=== PATIENT | female | born 1965 | race Two or more races ===

== ENCOUNTER 2017-06-13 12:01 | Emergency (ER) | payer SELFPAY ==
--- NOTE | 2017-06-13 12:23 | ER Document Report ---
ED Medical Screen (RME) - General Chief Complaint: Nausea Stated Complaint: BLOOD SUGAR ISSUES Time Seen by Provider: 06/13/17 12:12 Notes: 51-year-old female patient reports running out of metformin 3 months ago. She states her blood sugars are running high, as much as 263 fasting. For the past 2 weeks her head feels heavy, she feels nauseous, and is itching. I have greeted and performed a rapid initial assessment of this patient. A comprehensive ED assessment and evaluation of the patient, analysis of test results and completion of the medical decision making process will be conducted by additional ED providers. TRAVEL OUTSIDE OF THE [place] IN LAST 30 DAYS: No - Related Data Allergies/Adverse Reactions: No Known Allergies Allergy (Unverified 08/09/16 09:45) Past Medical History - Social History Chew tobacco use (# tins/day): No Frequency of alcohol use: None Drug Abuse: None Pulmonary Medical History: Reports: Hx Asthma, Hx Pneumonia Endocrine Medical History: Reports: Hx Diabetes Mellitus Type 2 - "DIET CONTROLLED" Renal/ Medical History: Denies: Hx Peritoneal Dialysis Past Surgical History: Reports: Hx Tubal Ligation Physical Exam - Vital signs Vitals: Temp Pulse Resp BP Pulse Ox 98.7 F 75 16 142/75 H 97 06/13/17 12:05 06/13/17 12:05 06/13/17 12:05 06/13/17 12:05 06/13/17 12:05 Course - Vital Signs Vital signs: Temp Pulse Resp BP Pulse Ox 98.7 F 75 16 142/75 H 97 06/13/17 12:05 06/13/17 12:05 06/13/17 12:05 06/13/17 12:05 06/13/17 12:05
[2017-06-13 12:43] LABS: ABSOLUTE EOSINOPHILS # (AUTO) 0.1 10^3/uL (0.0-0.6); ABSOLUTE LYMPHOCYTES (AUTO) 2.2 10^3/uL (0.5-4.7); ABSOLUTE MONOCYTES (AUTO) 0.4 10^3/uL (0.1-1.4); ABSOLUTE NEUT (AUTO) 2.9 10^3/uL (1.7-8.2); BASOPHILS % (AUTO) 0.6 % (0-2); EOSINOPHILS % (AUTO) 2.4 % (0-6); HEMATOCRIT 37.7 % (36.0-47.0); HEMOGLOBIN 12.6 g/dL (12.0-15.5); HGB HCT DIFFERENCE 0.1; LYMPHOCYTES % (AUTO) 38.8 % (13-45); MEAN CORPUSCULAR HEMOGLOBIN 28.3 pg (27.0-33.4); MEAN CORPUSCULAR HGB CONC 33.4 g/dL (32.0-36.0); MEAN CORPUSCULAR VOLUME 85 fl (80-97); MONOCYTES % (AUTO) 7.5 % (3-13); RED BLOOD COUNT 4.45 10^6/uL (3.72-5.28); SEGMENTED NEUTROPHILS % (AUTO) 50.7 % (42-78); WHITE BLOOD COUNT 5.7 10^3/uL (4.0-10.5)
[2017-06-13 12:57] LABS: ALANINE AMINOTRANSFERASE 21 U/L (9-52); ALBUMIN 4.1 g/dL (3.5-5.0); ALKALINE PHOSPHATASE 97 U/L (38-126); ANION GAP 10 (5-19); ASPARTATE AMINO TRANSFERASE 15 U/L (14-36); BILIRUBIN,DIRECT 0.3 mg/dL (0.0-0.4); BILIRUBIN,TOTAL 0.4 mg/dL (0.2-1.3); BLOOD UREA NITROGEN 20 mg/dL (7-20); CALCIUM 9.6 mg/dL (8.4-10.2); CARBON DIOXIDE 28 mmol/L (22-30); CHLORIDE 105 mmol/L (98-107); GLUCOSE 186 mg/dL (75-110); POTASSIUM 4.1 mmol/L (3.6-5.0); SODIUM 142.5 mmol/L (137-145); TOTAL PROTEIN 7.6 g/dL (6.3-8.2)
[2017-06-13 13:14] LABS: APPEARANCE,URINE SLIGHTLY-CLOUDY; BILIRUBIN,URINE NEGATIVE (NEGATIVE); CALCIUM OXALATE CRYSTALS,URINE RARE /HPF; GLUCOSE, URINE NEGATIVE (NEGATIVE); KETONES,URINE NEGATIVE (NEGATIVE); LEUKOCYTE ESTERASE,URINE SMALL (NEGATIVE); NITRITE,URINE NEGATIVE (NEGATIVE); PROTEIN,URINE NEGATIVE (NEGATIVE); URINE SPECIFIC GRAVITY 1.024; UROBILINOGEN,URINE NEGATIVE mg/dL (<2.0)
--- NOTE | 2017-06-13 14:14 | ER Document Report ---
ED General - General Chief Complaint: Nausea Stated Complaint: BLOOD SUGAR ISSUES Time Seen by Provider: 06/13/17 12:12 TRAVEL OUTSIDE OF THE [place] IN LAST 30 DAYS: No - HPI Patient complains to provider of: Blood sugar issues chronic fatigue Notes: Patient coming in for blood sugar issues and chronic fatigue also states intermittent nausea states symptoms have been ongoing for approximately 1 year. Patient states she sees a [facility] clinic. Patient denies any recent travel antibiotics patient states that she was on metformin at one time however does not take any metformin approximately 3 years. Patient states never received formal diabetic teaching was recently diagnosed as being diabetic approximately 1 year ago. Denies any fevers chills nausea vomiting denies any dysuria denies any chest pain or abdominal pain. - Related Data Allergies/Adverse Reactions: No Known Allergies Allergy (Unverified 08/09/16 09:45) Past Medical History - Social History Smoking Status: Former Smoker Chew tobacco use (# tins/day): No Frequency of alcohol use: None Drug Abuse: None Family History: Reviewed & Not Pertinent Pulmonary Medical History: Reports: Hx Asthma, Hx Pneumonia Endocrine Medical History: Reports: Hx Diabetes Mellitus Type 2 - "DIET CONTROLLED" Renal/ Medical History: Denies: Hx Peritoneal Dialysis Past Surgical History: Reports: Hx Tubal Ligation Review of Systems - Review of Systems Constitutional: Other - Blood sugar issues fatigue EENT: No symptoms reported Cardiovascular: No symptoms reported Respiratory: No symptoms reported Gastrointestinal: No symptoms reported Genitourinary: No symptoms reported Female Genitourinary: No symptoms reported Musculoskeletal: No symptoms reported Skin: No symptoms reported Hematologic/Lymphatic: No symptoms reported Neurological/Psychological: No symptoms reported -: Yes All other systems reviewed and negative Physical Exam - Vital signs Vitals: Temp Pulse Resp BP Pulse Ox 98.7 F 75 16 142/75 H 97 06/13/17 12:05 06/13/17 12:05 06/13/17 12:05 06/13/17 12:05 06/13/17 12:05 Interpretation: Normal - General General appearance: Appears well, Alert - HEENT Head: Normocephalic, Atraumatic Eyes: Normal Pupils: PERRL - Respiratory Respiratory status: No respiratory distress Chest status: Nontender Breath sounds: Normal Chest palpation: Normal - Cardiovascular Rhythm: Regular Heart sounds: Normal auscultation Murmur: No - Abdominal Inspection: Normal Distension: No distension Bowel sounds: Normal Tenderness: Nontender Organomegaly: No organomegaly - Back Back: Normal, Nontender - Extremities General upper extremity: Normal inspection, Nontender, Normal color, Normal ROM , Normal temperature General lower extremity: Normal inspection, Nontender, Normal color, Normal ROM , Normal temperature, Normal weight bearing. No: Jovanny's sign - Neurological Neuro grossly intact: Yes Cognition: Normal Orientation: AAOx4 [place] Coma Scale Eye Opening: Spontaneous [place] Coma Scale Verbal: Oriented [place] Coma Scale Motor: Obeys Commands [place] Coma Scale Total: 15 Speech: Normal Motor strength normal: LUE, RUE, LLE, RLE Sensory: Normal - Psychological Associated symptoms: Normal affect, Normal mood - Skin Skin Temperature: Warm Skin Moisture: Dry Skin Color: Normal Course - Re-evaluation Re-evalutation: 06/13/17 15:09 Laboratory studies show that patient's A1c has decreased from 1 year ago. Patient does have elevated blood sugar however no other critical pathology seen on EKG or laboratory studies. Attempted to have the patient seen to go to medical clinic however they are currently booked up until June. This is found out with the assistance of her social insurance administrator. Otherwise no critical etiology patient was encouraged to follow-up with her doctor and only for another checkup also for formal diabetic teaching patient will be discharged home - Vital Signs Vital signs: Temp Pulse Resp BP Pulse Ox 98.6 F 65 16 122/74 96 06/13/17 14:30 06/13/17 14:30 06/13/17 14:30 06/13/17 14:30 06/13/17 14:30 - Laboratory Result Diagrams: 06/13/17 12:30 06/13/17 12:30 Laboratory results interpreted by me: 06/13/17 06/13/17 06/13/17 12:30 12:30 12:30 Glucose 186 H Hemoglobin A1c % 6.9 H Urine Blood MODERATE H Ur Leukocyte Esterase SMALL H Discharge - Discharge Clinical Impression: Hyperglycemia Fatigue Qualifiers: Fatigue type: unspecified Qualified Code(s): R53.83 - Other fatigue Condition: Good Disposition: HOME, SELF-CARE Instructions: Fatigue ([facility]), Hyperglycemia ([facility]) Additional Instructions: Your laboratory studies not show any signs of significant pathology for your symptoms today. I highly recommend following up with your primary care provider for further evaluation. Your hemoglobin A1c is 6.9 today which puts your blood sugars averaging between 150s-180. This looks to have improved since her last hemoglobin A1c here 1 year ago. Continue to control your diet recommend that she follow-up with your primary care physician asked for diabetic teaching. Return to ER symptoms worsen Forms: Return to Work
[2017-06-13 14:30] VITALS: BP 122/74
--- NOTE | 2017-06-13 19:36 | EKG REPORT ---
SEVERITY:- NORMAL ECG - SINUS RHYTHM : Confirmed by: Viktor Conklin MD 13-Jun-2017 19:35:30
== END 2017-06-13 16:50 | disposition home or self-care (01) ==
LOC: ER 12:01
DX: E11.65 Type 2 diabetes mellitus with hyperglycemia (principal); R53.83 Other fatigue; J45.909 Unspecified asthma, uncomplicated; Z87.891 Personal history of nicotine dependence
CPT/HCPCS: 36415; 80053; 81001; 83036; 85025; 93005; 93010; 99283

== ENCOUNTER → 2017-10-22 | Outpatient (CLI) | payer OTHER ==
[2017-10-22 10:25] LABS: ABSOLUTE EOSINOPHILS # (AUTO) 0.1 10^3/uL (0.0-0.6); ABSOLUTE LYMPHOCYTES (AUTO) 1.8 10^3/uL (0.5-4.7); ABSOLUTE MONOCYTES (AUTO) 0.3 10^3/uL (0.1-1.4); BASOPHILS % (AUTO) 0.5 % (0-2); EOSINOPHILS % (AUTO) 2.2 % (0-6); HEMATOCRIT 40.2 % (36.0-47.0); HEMOGLOBIN 13.4 g/dL (12.0-15.5); LYMPHOCYTES % (AUTO) 34.4 % (13-45); MEAN CORPUSCULAR HEMOGLOBIN 28.1 pg (27.0-33.4); MEAN CORPUSCULAR HGB CONC 33.4 g/dL (32.0-36.0); MEAN CORPUSCULAR VOLUME 84 fl (80-97); MONOCYTES % (AUTO) 5.7 % (3-13); PLATELET COUNT 225 10^3/uL (150-450); RED BLOOD COUNT 4.78 10^6/uL (3.72-5.28); RED CELL DISTRIBUTION WIDTH 13.4 % (11.5-14.0); SEGMENTED NEUTROPHILS % (AUTO) 57.2 % (42-78); TOTAL CELLS COUNTED % (AUTO) 100 %; WHITE BLOOD COUNT 5.3 10^3/uL (4.0-10.5)
[2017-10-22 10:41] LABS: ALANINE AMINOTRANSFERASE 28 U/L (9-52); ALBUMIN 4.2 g/dL (3.5-5.0); ALKALINE PHOSPHATASE 107 U/L (38-126); ANION GAP 6 (5-19); ASPARTATE AMINO TRANSFERASE 16 U/L (14-36); BILIRUBIN,DIRECT 0.2 mg/dL (0.0-0.4); BILIRUBIN,TOTAL 0.4 mg/dL (0.2-1.3); BLOOD UREA NITROGEN 19 mg/dL (7-20); CALCIUM 9.8 mg/dL (8.4-10.2); CARBON DIOXIDE 29 mmol/L (22-30); CHLORIDE 103 mmol/L (98-107); CHOLESTEROL 190.54 mg/dL (0-200); GLUCOSE 288 mg/dL (75-110); POTASSIUM 4.3 mmol/L (3.6-5.0); TOTAL PROTEIN 7.5 g/dL (6.3-8.2); TRIGLYCERIDES 112 mg/dL (<150)
[2017-10-22 10:52] LABS: DIRECT LDL 144 mg/dL (<100)
== END ==
LOC: CCC 09:00
DX: I10 Essential (primary) hypertension (principal); E11.8 Type 2 diabetes mellitus with unspecified complications
CPT/HCPCS: 36415; 80053; 80061; 83036; 84443; 85025

== ENCOUNTER 2017-12-11 14:28 | Emergency (ER) | payer SELFPAY ==
[2017-12-11 15:07] VITALS: BP 136/82
[2017-12-11] MEDS ORDERED: LIDOCAINE 2% VISCOUS SOLN 20 ML UDCUP PO ONE (15:10)
--- NOTE | 2017-12-11 15:13 | ER Document Report ---
HPI - HPI Pain Level: 4 Notes: Patient is a 52-year-old female with a history of type 2 diabetes as well as hypertension who presents to the ED complaining of dental pain to #2 intermittently over the last week. Patient states that she is scheduled for dental appointment on Friday. Patient has not noticed any obvious abscess or discharge. Patient still able to eat and drink, but does have decreased p.o. intake due to the discomfort with chewing. She denies any drug allergies or IV drug use. No other concerns or complaints at this time. Denies any headache, fever, head injury, neck pain, URI, sore throat, chest pain, palpitations, syncope, cough, shortness of breath, wheeze, dyspnea, abdominal pain, nausea/ vomiting/diarrhea, urinary retention, dysuria, hematuria, or rash. - ROS Systems Reviewed and Negative: Yes All other systems reviewed and negative - REPRODUCTIVE Reproductive: DENIES: : Past Medical History - Social History Smoking Status: Unknown if Ever Smoked Family History: Reviewed & Not Pertinent Pulmonary Medical History: Reports: Hx Asthma, Hx Pneumonia Endocrine Medical History: Reports: Hx Diabetes Mellitus Type 2 - "DIET CONTROLLED" Renal/ Medical History: Denies: Hx Peritoneal Dialysis Past Surgical History: Reports: Hx Tubal Ligation Vertical Provider Document - CONSTITUTIONAL Agree With Documented VS: Yes Notes: PHYSICAL EXAMINATION: GENERAL: Well-appearing, well-nourished and in no acute distress. HEAD: Atraumatic, normocephalic. EYES: Pupils equal round and reactive to light, extraocular movements intact, sclera anicteric, conjunctiva are normal. ENT: EAC clear b/l. TM's intact b/l without erythema, fluid, or perforation. Nares patent and without discharge. oropharynx clear without exudates. No tonsilar hypertrophy or erythema. Moist mucous membranes. No sinus tenderness. Uvula midline. No palatine shift. No tongue protrusion. No respiratory compromise. Mouth: Poor dentition. + mild decay and mild gingivitis. No obvious abscess or discharge noted. No facial swelling. + tenderness to tooth #2. NECK: Normal range of motion, supple without lymphadenopathy. No rigidity/ meningismus. LUNGS: Breath sounds clear to auscultation bilaterally and equal. No wheezes rales or rhonchi. HEART: Regular rate and rhythm without murmurs, rubs, gallops. NEUROLOGICAL: Cranial nerves grossly intact. Normal speech, normal gait. Normal sensory, motor exams PSYCH: Normal mood, normal affect. SKIN: Warm, Dry, normal turgor, no rashes or lesions noted. - INFECTION CONTROL TRAVEL OUTSIDE OF THE [place] IN LAST 30 DAYS: No Course - Re-evaluation Re-evalutation: 12/11/17 15:11 Patient is an afebrile, well-hydrated, 52-year-old female who presents to the ED with dental pain to #2 approximately, suspect nerve root etiology versus infection. Vitals are acceptable. PE is otherwise unremarkable. Patient was given viscous lidocaine as well as a prescription of penicillin. Low suspicion for any meningitis, sepsis, peritonsillar/pharyngeal abscess, respiratory compromise, Kai's, temporal arteritis, or other emergent systemic condition at this time. Patient is aware this condition can change from initial presentation and he needs to monitor symptoms closely. Conservative measures otherwise for symptoms. Keep appointment with dentist on Friday. Recheck with your PCM this week as well. Return to the ED with any worsening/concerning symptoms otherwise as reviewed in discharge. Patient is in agreement. - Vital Signs Vital signs: Temp Pulse Resp BP Pulse Ox 97.8 F 74 16 136/82 H 99 12/11/17 15:06 12/11/17 15:06 12/11/17 15:06 12/11/17 15:06 12/11/17 15:06 Discharge - Discharge Clinical Impression: Toothache Condition: Stable Disposition: HOME, SELF-CARE Instructions: Penicillin V K ([facility]), Toothache ([facility]) Additional Instructions: [place] and floss twice daily Maintain fluid intake Take antibiotics as directed Mouthwash, salt water gargles, peroxide rinse as needed Tylenol/ibuprofen as needed Recheck with PCM this week Keep appointment with dentist on Friday Return to the ED with any worsening symptoms and/or development of fever, headache, facial swelling, swelling of lips/tongue/throat, trouble swallowing, drooling, hoarseness, neck pain/stiffness, chest pain, palpitations, syncope, shortness of breath, trouble breathing, abdominal pain, n/v/d, numbness/tingling , or other worsening symptoms that are concerning to you. Prescriptions: Penicillin V Potassium [Penicillin Vk 250 mg Tablet] 500 mg PO BID #40 tablet Forms: Elevated Blood Pressure Referrals: [facility] [Provider Group] - 12/15/17
== END 2017-12-11 15:19 | disposition home or self-care (01) ==
LOC: ER 14:28
DX: K08.9 Disorder of teeth and supporting structures, unspecified (principal); E11.9 Type 2 diabetes mellitus without complications; I10 Essential (primary) hypertension; Z98.51 Tubal ligation status
CPT/HCPCS: 99282; J3490

== ENCOUNTER → 2018-01-28 | Outpatient (CLI) | payer OTHER ==
[2018-01-28 14:47] LABS: ANION GAP 13 (5-19); BLOOD UREA NITROGEN 14 mg/dL (7-20); CALCIUM 9.7 mg/dL (8.4-10.2); CARBON DIOXIDE 26 mmol/L (22-30); CHLORIDE 105 mmol/L (98-107); GLUCOSE 80 mg/dL (75-110); POTASSIUM 4.3 mmol/L (3.6-5.0); SODIUM 143.7 mmol/L (137-145)
== END ==
LOC: OD 12:54
DX: E11.8 Type 2 diabetes mellitus with unspecified complications (principal); I10 Essential (primary) hypertension
CPT/HCPCS: 36415; 80048; 83036

== ENCOUNTER → 2019-02-10 | Outpatient (CLI) | payer OTHER ==
[2019-02-10 09:35] LABS: ABSOLUTE EOSINOPHILS # (AUTO) 0.2 10^3/uL (0.0-0.6); ABSOLUTE LYMPHOCYTES (AUTO) 2.2 10^3/uL (0.5-4.7); ABSOLUTE MONOCYTES (AUTO) 0.3 10^3/uL (0.1-1.4); ABSOLUTE NEUT (AUTO) 2.4 10^3/uL (1.7-8.2); BASOPHILS % (AUTO) 0.8 % (0-2); EOSINOPHILS % (AUTO) 3.3 % (0-6); HEMATOCRIT 40.2 % (36.0-47.0); HEMOGLOBIN 13.3 g/dL (12.0-15.5); LYMPHOCYTES % (AUTO) 43.4 % (13-45); MEAN CORPUSCULAR HEMOGLOBIN 27.8 pg (27.0-33.4); MEAN CORPUSCULAR HGB CONC 33.1 g/dL (32.0-36.0); MEAN CORPUSCULAR VOLUME 84 fl (80-97); MONOCYTES % (AUTO) 6.4 % (3-13); PLATELET COUNT 235 10^3/uL (150-450); RED BLOOD COUNT 4.78 10^6/uL (3.72-5.28); RED CELL DISTRIBUTION WIDTH 14.6 % (11.5-14.0); SEGMENTED NEUTROPHILS % (AUTO) 46.1 % (42-78); TOTAL CELLS COUNTED % (AUTO) 100 %; WHITE BLOOD COUNT 5.1 10^3/uL (4.0-10.5)
[2019-02-10 10:05] LABS: ALANINE AMINOTRANSFERASE 15 U/L (9-52); ALBUMIN 4.1 g/dL (3.5-5.0); ALKALINE PHOSPHATASE 71 U/L (38-126); ANION GAP 10 (5-19); ASPARTATE AMINO TRANSFERASE 14 U/L (14-36); BILIRUBIN,DIRECT 0.2 mg/dL (0.0-0.4); BILIRUBIN,TOTAL 0.3 mg/dL (0.2-1.3); BLOOD UREA NITROGEN 21 mg/dL (7-20); CALCIUM 9.6 mg/dL (8.4-10.2); CARBON DIOXIDE 29 mmol/L (22-30); CHLORIDE 105 mmol/L (98-107); CHOLESTEROL 159.55 mg/dL (0-200); GLUCOSE 97 mg/dL (75-110); POTASSIUM 4.5 mmol/L (3.6-5.0); SODIUM 144.4 mmol/L (137-145); TOTAL PROTEIN 7.9 g/dL (6.3-8.2); TRIGLYCERIDES 59 mg/dL (<150)
[2019-02-10 10:17] LABS: DIRECT LDL 106 mg/dL (<100)
== END ==
LOC: CCC 08:42
DX: E11.8 Type 2 diabetes mellitus with unspecified complications (principal); I10 Essential (primary) hypertension
CPT/HCPCS: 36415; 80053; 80061; 84443; 85025

== ENCOUNTER → 2019-03-03 | Outpatient (CLI) | payer OTHER ==
[2019-03-03 12:15] LABS: CHOLESTEROL 178.44 mg/dL (0-200); TRIGLYCERIDES 51 mg/dL (<150)
[2019-03-03 12:26] LABS: DIRECT LDL 120 mg/dL (<100)
== END ==
LOC: CCC 11:01
DX: E78.5 Hyperlipidemia, unspecified (principal)
CPT/HCPCS: 36415; 80061

== ENCOUNTER → 2019-06-25 | Outpatient (CLI) | payer OTHER ==
[2019-06-25 10:07] LABS: CHOLESTEROL 108.36 mg/dL (0-200); TRIGLYCERIDES 46 mg/dL (<150)
[2019-06-25 10:19] LABS: DIRECT LDL 69 mg/dL (<100)
== END ==
LOC: CCC 08:30
DX: E11.8 Type 2 diabetes mellitus with unspecified complications (principal); I10 Essential (primary) hypertension; E78.5 Hyperlipidemia, unspecified
CPT/HCPCS: 36415; 80061

== ENCOUNTER 2020-08-27 20:50 | Emergency (ER) | payer SELFPAY ==
--- NOTE | 2020-08-27 21:39 | ER Document Report ---
ED Medical Screen (RME) - General Stated Complaint: CHEST PRESSURE EPIGASTRIC PAIN Time Seen by Provider: 08/27/20 21:27 Primary Care Provider: [facility] [Primary Care Provider] - Follow up as needed Mode of Arrival: Wheelchair Information source: Patient Notes: HPI; 54-year-old female past medical history significant for hypertension, diabetes, cholesterol was brought to the emergency room by ambulance after complaining of dizziness with chest pain that started earlier today. States she was given 3 nitro sprays in route by ambulance and is currently pain-free. States her dizziness resolved without intervention. She denies any nausea, vomiting, no diaphoresis. She had described the pain as sharp and midsternal. States right now she just feels some "heaviness" on her chest but states she would not "call it pain". PE: Alert and oriented x3. Lungs: Clear to auscultation without rales, rhonchi, wheezes. Heart: Regular rate rhythm without murmurs, rubs, gallops. I have greeted and performed a rapid initial assessment of this patient. A comprehensive ED assessment and evaluation of the patient, analysis of test results and completion of the medical decision making process will be conducted by additional ED providers. I have specifically instructed the patient or family members with the patient to immediately return to any nursing staff should anything change in the patient's condition or with their chief complaint. TRAVEL OUTSIDE OF THE [place] IN LAST 30 DAYS: No - Related Data Allergies/Adverse Reactions: No Known Allergies Allergy (Unverified 08/09/16 09:45) Past Medical History Pulmonary Medical History: Reports: Hx Asthma, Hx Pneumonia Endocrine Medical History: Reports: Hx Diabetes Mellitus Type 2 - "DIET CONTROLLED" Renal/ Medical History: Denies: Hx Peritoneal Dialysis Past Surgical History: Reports: Hx Tubal Ligation Physical Exam - Vital signs Vitals: Temp Pulse Resp BP Pulse Ox 98.5 F 84 16 122/69 97 08/27/20 20:57 08/27/20 20:57 08/27/20 20:57 08/27/20 20:57 08/27/20 20:57 Course - Vital Signs Vital signs: Temp Pulse Resp BP Pulse Ox 98.5 F 84 16 122/69 97 08/27/20 20:57 08/27/20 20:57 08/27/20 20:57 08/27/20 20:57 08/27/20 20:57 Doctor's Discharge - Discharge Referrals: [facility] [Primary Care Provider] - Follow up as needed
[2020-08-27 22:36] LABS: ABSOLUTE EOSINOPHILS # (AUTO) 0.1 10^3/uL (0.0-0.6); ABSOLUTE MONOCYTES (AUTO) 0.6 10^3/uL (0.1-1.4); TOTAL CELLS COUNTED % (AUTO) 100 %
--- NOTE | 2020-08-27 22:54 | RADIOLOGY REPORT (SQ) ---
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 Comparison: Chest radiograph performed 08/09/2016. Findings: The cardiomediastinal silhouette is normal in size. No pneumothorax is seen. No acute airspace opacities are seen. No discrete pleural effusion is apparent. Impression: No acute airspace opacities are seen.
[2020-08-27 22:57] LABS: ALBUMIN 4.2 g/dL (3.5-5.0); ALKALINE PHOSPHATASE 79 U/L (38-126); ANION GAP 6 (5-19); ASPARTATE AMINO TRANSFERASE 21 U/L (14-36); BILIRUBIN,TOTAL 0.3 mg/dL (0.2-1.3); BLOOD UREA NITROGEN 18 mg/dL (7-20); CARBON DIOXIDE 32 mmol/L (22-30); CHLORIDE 100 mmol/L (98-107); GLUCOSE 117 mg/dL (75-110); TOTAL PROTEIN 7.6 g/dL (6.3-8.2)
[2020-08-27 23:09] LABS: ABSOLUTE LYMPHOCYTES (AUTO) 2.9 10^3/uL (0.5-4.7); ABSOLUTE NEUT (AUTO) 4.7 10^3/uL (1.7-8.2); BASOPHILS % (AUTO) 0.6 % (0-2); EOSINOPHILS % (AUTO) 1.6 % (0-6); HEMATOCRIT 35.9 % (36.0-47.0); HEMOGLOBIN 12.1 g/dL (12.0-15.5); LYMPHOCYTES % (AUTO) 34.4 % (13-45); MEAN CORPUSCULAR HEMOGLOBIN 28.6 pg (27.0-33.4); MEAN CORPUSCULAR HGB CONC 33.8 g/dL (32.0-36.0); MEAN CORPUSCULAR VOLUME 85 fl (80-97); MONOCYTES % (AUTO) 7.5 % (3-13); PLATELET COUNT 250 10^3/uL (150-450); RED BLOOD COUNT 4.23 10^6/uL (3.72-5.28); RED CELL DISTRIBUTION WIDTH 14.2 % (11.5-14.0); SEGMENTED NEUTROPHILS % (AUTO) 55.9 % (42-78); WHITE BLOOD COUNT 8.4 10^3/uL (4.0-10.5)
[2020-08-28] MEDS ORDERED: POTASSIUM CHLORIDE 10 MEQ TABLET.ER PO ONE (00:15)
--- NOTE | 2020-08-28 00:21 | ER Document Report ---
ED General - General Chief Complaint: Chest Pain Stated Complaint: CHEST PRESSURE EPIGASTRIC PAIN Time Seen by Provider: 08/27/20 21:27 Primary Care Provider: [facility] [Primary Care Provider] - Follow up as needed Mode of Arrival: Wheelchair Notes: This 54-year-old woman presents to the emergency department with a complaint of chest pressure and epigastric pain and pressure with belching. Patient symptoms began around 2 AM in the afternoon and continued there was no vomiting and improvement 2 AM resolution without medical intervention. EMS was called to the home and the patient did receive aspirin 325mg sublingual nitroglycerin 0.4 mg sublingual x3 and patient was brought to the emergency department. The Covid screening was negative the patient. And in the emergency department she is alert and talkative and in no distress. Past medical history significant for h ypertension, diabetes mellitus, obesity, and elevated lipids. TRAVEL OUTSIDE OF THE [place] IN LAST 30 DAYS: No - Related Data Allergies/Adverse Reactions: No Known Allergies Allergy (Unverified 08/09/16 09:45) Past Medical History - General Information source: Patient - Social History Smoking Status: Former Smoker Chew tobacco use (# tins/day): No Frequency of alcohol use: None Drug Abuse: None Family History: Reviewed & Not Pertinent - Past Medical History Cardiac Medical History: Reports: Hx Hypercholesterolemia, Hx Hypertension Pulmonary Medical History: Reports: Hx Asthma, Hx Pneumonia Neurological Medical History: Reports: Hx Migraine Endocrine Medical History: Reports: Hx Diabetes Mellitus Type 2 - "DIET CONTROLLED" Renal/ Medical History: Denies: Hx Peritoneal Dialysis Past Surgical History: Reports: Hx Tubal Ligation Review of Systems - Review of Systems Notes: Constitutional: Negative for fever. HENT: Negative for sore throat. Eyes: Negative for visual changes. Cardiovascular: See HPI Respiratory: Negative for shortness of breath. Gastrointestinal: See HPI. Genitourinary: Negative for dysuria. Musculoskeletal: Negative for back pain. Skin: Negative for rash. Neurological: Negative for headaches, weakness or numbness. 10 point ROS negative except as marked above and in HPI. Physical Exam - Vital signs Vitals: Temp Pulse Resp BP Pulse Ox 98.5 F 84 16 122/69 97 08/27/20 20:57 08/27/20 20:57 08/27/20 20:57 08/27/20 20:57 08/27/20 20:57 - Notes Notes: PHYSICAL EXAMINATION: Physical Exam: General: Obese 54-year-old woman in no acute distress HEENT: Normocephalic atraumatic, pupils equal round react light accommodation, extraocular motions intact ear, oropharynx clear, airway patent Neck: supple, no adenopathy, no masses. Good range of motion, no JVD Lungs: Clear with good air movement bilaterally CVS: Regular rate and rhythm no murmur gallop or rub Abdomen: Soft, active, nontender, no masses, no hepatosplenomegaly Ext: No edema, clubbing or cyanosis. Neuro: Alert and responsive, moving all 4 extremities on command, cranial nerves intact, no focal findings Skin: Intact no open lesions, no rash Course - Vital Signs Vital signs: Temp Pulse Resp BP Pulse Ox 98.5 F 84 17 120/58 L 97 08/27/20 23:00 08/27/20 20:57 08/28/20 01:01 08/28/20 01:01 08/28/20 01:01 - Laboratory Result Diagrams: 08/27/20 22:25 08/27/20 22:25 Laboratory results interpreted by me: 08/27/20 08/27/20 22:25 22:25 Hct 35.9 L RDW 14.2 H Potassium 3.0 L* Carbon Dioxide 32 H Glucose 117 H 08/28/20 02:06 I have reviewed laboratory data and used this information for the treatment decisions regarding the patient. - Diagnostic Test Radiology reviewed: Image reviewed, Reports reviewed Radiology results interpreted by me: 08/28/20 01:56 No acute cardiopulmonary findings on chest x-ray. - EKG Interpretation by Ga Rate: Normal - EKG interpreted by Dr. Kan: Normal sinus rhythm, rate 73, WI interval 156 ms QT interval 396 ms, normal axis, no acute ST or T wave abnormalities, no ischemic findings, compared to EKG dated 06/13/2017, no acute interval changes are noted. Interpretation normal EKG Discharge - Discharge Clinical Impression: Non-cardiac chest pain, Hypokalemia GERD (gastroesophageal reflux disease) Qualifiers: Esophagitis presence: without esophagitis Qualified Code(s): K21.9 - Gastro- esophageal reflux disease without esophagitis Condition: Fair Disposition: HOME, SELF-CARE Instructions: Hypokalemia ([facility]), Prilosec (Acid Pump Inhibitor) ([facility]), Reflux Disease (GERD) ([facility]) Additional Instructions: You were seen in the emergency department tonight with episodes of chest discomfort and belching with an evaluation which reveals noncardiac chest pain. Your potassium was found to be low and a prescription is written for potassium supplement. It is likely that your symptoms are related to your GI complaints and not your heart. Using an antacid would help to reduce a recurrence of the symptoms. Please follow-up with your primary care doctor. HOME CARE INSTRUCTIONS & INFORMATION: Thank you for choosing us for your medical needs. We hope you're satisfied with the care you received. After you leave, you must properly care for your problem and, at the same time, observe its progress. Any condition can change. Some illnesses can change rapidly over hours or days. If your condition worsens, return to the Emergency Department or see your physician promptly. ABOUT YOUR X-RAYS AND EKG'S: If you had an EKG or X-rays taken, they have been read by the Emergency Physician. The X-rays and EKG's will also be read by a Radiologist or Director Apparel within 24 hours. If discrepancies are noted, you will be notified by telephone. Please be certain the ED has a correct telephone number & address where you can be reached. Also, realize that some fractures or abnormalities do not show up on initial X-rays. If your symptoms continue, see your physician. ABOUT YOUR LABORATORY TEST: If you had laboratory tests, the results have been reviewed by the Emergency Physician. Some test results (for example cultures) may not be available for several days. You will be contacted if any test result shows you need additional treatment. Please be certain the ED has a correct telephone number and address where you can be reached. ABOUT YOUR MEDICATIONS: You will receive instructions on how to take your medicine on the prescription label you receive. Additional information may be provided by the Pharmacy. If you have questions afterwards, call the ED for clarification or further instructions. Some prescribed medications may cause drowsiness. Do not perform tasks such as driving a car or operating machinery without consulting your Pharmacist. If you feel you need a refill of pain medication, your condition will need re-evaluation. Please do not call for a refill of any medication. ABOUT YOUR SIGNATURE: Signature of this document acknowledges to followin. Understanding that you received emergency treatment and that you may be released before al medical problems are known or treated. Please be certain the ED has a correct phone number & address where you can be reached. 2. Acknowledgement that you will arrange for follow-up care as recommended. 3. Authorization for the Emergency Physician to provide information to your follow-up Physician in order to maximize your care. AT ANY TIME, IF YOUR SYMPTOMS CHANGE SIGNIFICANTLY OR WORSEN OR YOU DEVELOP NEW SYMPTOMS, RETURN TO THE EMERGENCY DEPARTMENT IMMEDIATELY FOR RE-EVALUATION. OUR GOAL IS TO PROVIDE EXCELLENT MEDICAL CARE! WE HOPE THAT WE HAVE MET YOUR EXPECTATIONS DURING YOUR EMERGENCY DEPARTMENT VISIT AND THAT YOU FEEL YOU HAVE RECEIVED EXCELLENT CARE! Prescriptions: Potassium Chloride 20 meq PO DAILY #10 [email or web address] Referrals: [facility] [Primary Care Provider] - Follow up as needed
[2020-08-28 02:13] VITALS: BP 120/71
--- NOTE | 2020-08-28 08:17 | EKG REPORT ---
SEVERITY:- NORMAL ECG - SINUS RHYTHM : Confirmed by: Gali Schmitt 28-Aug-2020 08:16:01
== END 2020-08-28 02:13 | disposition home or self-care (01) ==
LOC: ER 20:50
DX: K21.9 Gastro-esophageal reflux disease without esophagitis (principal); E87.6 Hypokalemia; R07.89 Other chest pain; R10.13 Epigastric pain; R14.2 Eructation; I10 Essential (primary) hypertension; E11.9 Type 2 diabetes mellitus without complications; J45.909 Unspecified asthma, uncomplicated; E66.9 Obesity, unspecified; Z87.891 Personal history of nicotine dependence
CPT/HCPCS: 36415; 71045; 80053; 83735; 83880; 84484; 85025; 93005; 93010; 99285

== ENCOUNTER → 2020-09-09 | Outpatient (CLI) | payer OTHER ==
[2020-09-09 12:46] LABS: ANION GAP 6 (5-19); BLOOD UREA NITROGEN 18 mg/dL (7-20); CALCIUM 9.1 mg/dL (8.4-10.2); CARBON DIOXIDE 31 mmol/L (22-30); CHLORIDE 105 mmol/L (98-107); CHOLESTEROL 109.89 mg/dL (0-200); GLUCOSE 109 mg/dL (75-110); POTASSIUM 3.9 mmol/L (3.6-5.0); TRIGLYCERIDES 48 mg/dL (<150)
[2020-09-09 12:56] LABS: DIRECT LDL 64 mg/dL (<100)
== END ==
LOC: CCC 11:03
PROVIDERS: ATTEND Internal Medicine
DX: E78.5 Hyperlipidemia, unspecified (principal); I10 Essential (primary) hypertension; R10.84 Generalized abdominal pain
CPT/HCPCS: 36415; 80048; 80061; 83036; 84443; 86677